=== PATIENT | female | born 1955 | race Caucasian/White ===

== ENCOUNTER 2018-04-12 15:44 | Inpatient (IN) ==
[2018-04-12] MEDS ORDERED: D5% in Water 1,000 ML IVC PRN (19:04)
[2018-04-12] MEDS ORDERED: Dextrose Gel 15 GM/37.5 ML TUBE PO PRN ×2 (19:04)
[2018-04-12] MEDS ORDERED: *HR* Dextrose 50 % in Water (Syg) 50 ML SYRINGE IVP PRN (19:04)
[2018-04-12] MEDS ORDERED: Nitroglycerin 0.4 MG TAB.SUBL SL PRN (21:49)
[2018-04-12] MEDS: Insulin LISPRO 300 UNITS/3 ML VIAL SQ SCH (22:53)
[2018-04-13] MEDS: *HR* Heparin 5,000 UNIT/ML VIAL SQ SCH ×2 (05:02→17:22)
[2018-04-13 05:33] LABS: Basophils # 0.1 K/mcL (0.0-0.2); Basophils % 1.3 %; Eosinophils # 0.4 K/mcL (0.0-0.6); Eosinophils % 4.5 %; Hematocrit 40.4 % (35.3-44.9); Hemoglobin 13.8 g/dL (11.5-15.4); Immature Granulocytes % 0.3 % (0-4); Lymphocytes # 3.1 K/mcL (0.6-4.6); Lymphocytes % 39.8 %; Mean Corpuscular HGB Conc 34.2 g/dL (31.6-35.5); Mean Corpuscular Hemoglobin 29.6 pg (28.0-33.3); Mean Corpuscular Volume 86.7 fL (83.0-100.0); Mean Platelet Volume 9.9 fL (9.4-12.4); Monocytes # 0.7 K/mcL (0.0-1.3); Monocytes % 9.1 %; Neutrophils # 3.5 K/mcL (1.6-8.9); Platelet Count 314 K/mcL (140-400); Red Blood Count 4.66 M/mcL (3.82-4.97); Red Cell Distribution Width 11.9 % (11.5-14.5)
[2018-04-13 05:50] LABS: Alanine Aminotransferase 14 Units/L (7-52); Albumin 4.3 g/dL (3.5-5.7); Albumin/Globulin Ratio 1.9 (1.1-2.2); Alkaline Phosphatase 53 Units/L (34-104); Aspartate Amino Transferase 13 Units/L (13-39); BUN/Creatinine Ratio 19 (6-26); Bilirubin,Total 0.5 mg/dL (0.3-1.0); Blood Urea Nitrogen 16 mg/dL (8-23); Calcium 9.5 mg/dL (8.6-10.3); Carbon Dioxide 28 mEq/L (23-29); Chloride 106 mEq/L (98-107); Globulin 2.3 g/dL (2.4-3.5); Glucose 137 mg/dL (70-105); Magnesium 1.8 mg/dL (1.6-2.6); Osmolality,Calculated 297 (280-300); Potassium 3.9 mEq/L (3.5-5.1); Sodium 142 mEq/L (136-145); Total Protein 6.6 g/dL (6.4-8.9); eGFR For Non-African Americans > 60 (> 60)
[2018-04-13] MEDS: Insulin LISPRO 300 UNITS/3 ML VIAL SQ SCH ×4 (07:58→20:58)
[2018-04-13] MEDS: Cholecalciferol (D-3) 1,000 UNIT TABLET PO SCH (08:19)
[2018-04-13] MEDS: Aspirin Enteric Coated 81 MG Tablet PO SCH (08:20)
[2018-04-13] MEDS: METFORMIN PO SCH ×2 (08:20→20:58)
[2018-04-13] MEDS: [UNRECOGNIZED DRUG - OTHER] PO SCH ×2 (08:20→20:58)
[2018-04-13] MEDS: Gabapentin 100 MG CAPSULE PO SCH ×2 (08:20→20:58)
[2018-04-13] MEDS: Metoprolol XL (24 HR) Succ 25 MG TAB.ER.24H PO SCH (08:20)
[2018-04-13] MEDS: traMADol 50 MG TABLET PO PRN ×2 (09:10→20:58)
--- NOTE | 2018-04-13 11:59 | Internal Med History&Physical ---
Date of Encounter: 04/13/18 Time of Encounter: 11:55 Assessment and Plan (1) CVA (cerebral vascular accident) Current visit: Yes Status: Acute Patient lives this facility for rehabilitation due to deconditioning, secondary to a possible CVA. Patient was evaluated for right hemiparesis at [facility] by neurology. After serial imaging , no definite diagnosis of CVA was obtained. Patient continues with right hemiparesis with muscle strength focal deficits noted on exam. 06/30. Patient with complaints of decreased sensation to her right leg, but otherwise no other focal neurological deficits noted on exam. He is to continue follow-up with neurology in 3-4 weeks per discharge orders. Physical therapy evaluation pending. We will continue with current plan of care. Qualifiers: CVA mechanism: unspecified Qualified Code(s): I63.9 - Cerebral infarction, unspecified (2) Diabetes Current visit: Yes Status: Chronic No acute issues at this time. Patient's glucose has been fairly well-controlled with most fingerstick readings between 150 and 170. We will continue with current sliding scale coverage and patient's current medication regimen. Qualifiers: Diabetes mellitus type: type 2 Diabetes mellitus terminal superintendent insulin use: without terminal superintendent use Diabetes mellitus complication status: without complication Qualified Code(s): E11.9 - Type 2 diabetes mellitus without complications (3) CAD (coronary artery disease) Current visit: Yes Status: Chronic Patient presented to emergency department with complaints of chest pain, but was evaluated by cardiology and found to have negative enzymes. Patient did have a stress test which showed possible ischemia. Patient was to be treated medically and is to continue follow-up with cardiology. Patient does have a history of coronary artery disease. States no further chest discomforts since her initial admission. Denies any palpitations. We will continue with current home medications Qualifiers: Coronary Disease-Associated Artery/Lesion type: [place] artery [place] vs. transplanted heart: [place] heart Associated angina: without angina Qualified Code(s): I25.10 - Atherosclerotic heart disease of [place] coronary artery without angina pectoris Internal Medicine - H&P: HPI Chief complaint: CVA Admitted From: Hospital to Hospital Transfer Plans for Post Hospital Care: Home History of present illness: Ms. Fenton is a 62 year old female , who was admitted to this facility as a transfer from [facility]. Patient presented to [facility] with complaints of chest pain and right hemiparesis. Patient's chest pain had soon resolved after presentation to the emergency department and cardiology evaluation showed no HI per enzymes. Patient did have a stress test performed which did show slight ischemia. Per medical records treatment plan decision was for medical manag ement. Patient was evaluated by neurology and had serial emergency which did not show any acute infarction. Patient continues with right hemiparesis and is to follow-up with neurology in 3-4 weeks for further evaluation. Patient does have a history of previous CVA, but states that she has no residual from that event. Patient does state that she feels her strength in her right hand has improved slightly since her transfer. Patient states that she has a decreased sensation that she has noticed to the entire right leg, with lateral greater than medial in loss of sensation. Patient denies paresthesias symptoms. Patient currently denies any acute neurological changes since her discharge from hospital. Patient denies any further chest discomforts or palpitations. Patient denies any dyspnea or productive cough. Afebrile. Past Med Surg Social Fam HX - Past Medical History Medical history: coronary artery disease, CVA, DVT, diabetes, fibromyalgia, hyperlipidemia, hypertension, seizures Additional medical history: thyroid cancer-2013 Psychiatric history: no psych history - Past Surgical History Surgical History: cholecystectomy, LAYLA/BSO, thyroidectomy Additional surgical history: cath heart, - Social History Smoking Status: Never smoker Smokeless Tobacco Status: No Alcohol use: none Drug use: none - Family History Mother Living Status: Hx Family Cardiac Disorders: Yes (valve replacement) Hx Family Endocrine Disorder: Yes (CKD) Hx Family Neurologic Disorders: Yes (CVA) Brother Living Status: Still Living Hx Family Cardiac Disorders: Yes (open heart x2) Father Living Status: Hx Family Respiratory Disorders: Yes (emphysema) Internal Medicine - H&P: Meds Aspirin [Lo-Dose Aspirin EC] 81 mg PO DAILY 04/25/16 [History] Atorvastatin Calcium 10 mg PO DAILY 04/25/16 [History] Clopidogrel [Plavix] 75 mg PO DAILY 04/25/16 [History] Duloxetine HCl [Cymbalta] 60 mg PO DAILY 10/06/16 [History] Ergocalciferol (VITAMIN D2) [Vitamin D2] 2,000 unit PO DAILY 10/06/16 [History] Gabapentin [Neurontin] 200 mg PO HS 10/06/16 [History] Metformin HCl [Metformin ER Gastric] 1,000 mg PO BID 10/06/16 [History] Oxybutynin [Ditropan] 5 mg PO BID 10/06/16 [History] Latanoprost [Xalatan] 1 drop BOTH EYES QPM 04/10/18 [History] Levothyroxine Sodium 112 mcg PO DAILY 04/10/18 [History] Gabapentin [Neurontin] 200 mg PO QAM #0 04/12/18 [Rx] Metoprolol XL (24 HR) Succ [Toprol Xl] 25 mg PO DAILY #30 tab.er.24h 04/12/18 [Rx] Nitroglycerin 0.4 mg SL Q5MIN PRN #30 tab.subl 04/12/18 [Rx] Tramadol HCl [Ultram] 50 mg PO QID PRN 3 Days #12 tab 04/12/18 [Rx] Allergy/AdvReac Type Severity Reaction Status Date / Time oxycodone [From Percocet] AdvReac Rash Verified 10/06/16 09:43 All Systems PM: A 10-system review of systems was performed and is negative for pertinent findings except as documented above in the HPI. - Constitutional Constitutional: as per HPI, no chills, no fever(s), no night sweats - EENT Eyes: as per HPI, no change in vision, no discharge, no pain, no photophobia Ears: no ear discharge, no ear pain, no tinnitus Nose, mouth and throat: no dysphagia, no nasal discharge, no neck pain, no sore throat - Cardiovascular Cardiovascular ROS IM: as per HPI, no chest pain, no diaphoresis, no dyspnea, no lightheadedness, no palpitations, no syncope - Respiratory Respiratory: as per HPI, no cough, no dyspnea, no wheezing, no excessive phlegm production - Gastrointestinal Gastrointestinal: as per HPI, no abdominal pain, no diarrhea, no hematemesis, no hematochezia, no melena, no nausea, no vomiting - Genitourinary Genitourinary: as per HPI, no change in urinary stream, no dysuria, no flank pain, no hematuria - Musculoskeletal Musculoskeletal ROS IM: as per HPI, no numbness, no tingling - Integumentary Integumentary IM: as per HPI, no rash, no unusual bruising - Neurological Neurological ROS: as per HPI, no confusion, no convulsions, no focal weakness, no numbness, no tingling, no tremor(s) - Hematologic/Lymphatic Hematologic/Lymphatic: no easy bruising - Constitutional Vitals: Temp Pulse Resp BP Pulse Ox 97.9 F 62 18 136/68 94 04/13/18 11:45 04/13/18 11:45 04/13/18 11:45 04/13/18 11:45 04/13/18 11:45 General appearance: Present: A&O X 3, pleasant - Head Head exam: Present: atraumatic, normocephalic - Eye Eye exam: Present: PERRL, conjuntiva pink, sclera anicteric Pupils: Present: PERRL - Neck Neck exam general surgery: Present: supple, trachea midline. Absent: lymphadenopathy - Respiratory Respiratory exam: Present: CTAB, rales. Absent: accessory muscle use, rhonchi, wheezes Additional comments: Respiratory effort appears relaxed. Lungs are clear throughout [place] with fine posterior bibasilar rales heard. No productive cough. - Cardiovascular Cardiovascular exam: Present: RRR, +S1, +S2. Absent: diastolic murmur, gallop, rubs, systolic murmur - GI/Abdominal GI/Abdominal exam: Present: normal bowel sounds, soft, no peritoneal signs. Absent: distended, tenderness - Extremities Exam Extremities exam: Present: warm, radial pulses palpable and symmetrical. Absent: calf tenderness, cyanotic, pedal edema - Neurological Exam Neurological exam: Present: CN II-XII intact, oriented X3. Absent: pronater drift, facial droop, speech deficit Additional comments: Continued right hemiparesis with right upper extremity at 4/5 muscle strength and right lower extremity at 4/5 muscle strength. Left extremities show 5/5 muscle strength. No hyperreflexia noted. No clonus. Patient does complain of slight decreased in sensation to entire right leg, with increased numbness noted to lateral side of right leg - Skin Skin exam: Present: dry, intact Internal Med - H&P Results - Labs CBC & Chem 7: 04/13/18 04:45 04/13/18 04:45 Labs: Short CBC 04/13/18 Range/Units 04:45 WBC 7.8 (4.3-11.1) K/mcL Hgb 13.8 D (11.5-15.4) g/dL Hct 40.4 (35.3-44.9) % Plt Count 314 (140-400) K/mcL Neutrophils # 3.5 (1.6-8.9) K/mcL BMP 04/13/18 04:45 Sodium 142 Potassium 3.9 Chloride 106 Carbon Dioxide 28 BUN 16 Creatinine 0.83 Glucose 137 H Calcium 9.5 Liver Function 04/13/18 Range/Units 04:45 Total Bilirubin 0.5 (0.3-1.0) mg/dL AST 13 (13-39) Units/L ALT 14 (7-52) Units/L Alkaline Phosphatase 53 (34-104) Units/L Albumin 4.3 (3.5-5.7) g/dL
[2018-04-13] MEDS: Latanoprost 2.5 ML BOTTLE BOTH EYES SCH (17:23)
[2018-04-14] MEDS: *HR* Heparin 5,000 UNIT/ML VIAL SQ SCH ×2 (04:42→17:22)
[2018-04-14 06:04] LABS: Hematocrit 39.6 % (35.3-44.9); Hemoglobin 13.3 g/dL (11.5-15.4); Mean Corpuscular HGB Conc 33.6 g/dL (31.6-35.5); Mean Corpuscular Hemoglobin 29.3 pg (28.0-33.3); Mean Corpuscular Volume 87.2 fL (83.0-100.0); Mean Platelet Volume 9.9 fL (9.4-12.4); Platelet Count 292 K/mcL (140-400); Red Blood Count 4.54 M/mcL (3.82-4.97)
[2018-04-14 06:19] LABS: Alanine Aminotransferase 23 Units/L (7-52); Albumin 4.3 g/dL (3.5-5.7); Albumin/Globulin Ratio 1.9 (1.1-2.2); Alkaline Phosphatase 52 Units/L (34-104); Aspartate Amino Transferase 21 Units/L (13-39); BUN/Creatinine Ratio 17 (6-26); Bilirubin,Total 0.5 mg/dL (0.3-1.0); Blood Urea Nitrogen 14 mg/dL (8-23); Calcium 9.4 mg/dL (8.6-10.3); Carbon Dioxide 29 mEq/L (23-29); Chloride 105 mEq/L (98-107); Globulin 2.3 g/dL (2.4-3.5); Glucose 153 mg/dL (70-105); Magnesium 1.9 mg/dL (1.6-2.6); Osmolality,Calculated 296 (280-300); Sodium 141 mEq/L (136-145); Total Protein 6.6 g/dL (6.4-8.9); eGFR For Non-African Americans > 60 (> 60)
[2018-04-14] MEDS: Insulin LISPRO 300 UNITS/3 ML VIAL SQ SCH ×4 (07:51→21:42)
[2018-04-14] MEDS: Cholecalciferol (D-3) 1,000 UNIT TABLET PO SCH (08:17)
[2018-04-14] MEDS: Gabapentin 100 MG CAPSULE PO SCH ×2 (08:17→21:43)
[2018-04-14] MEDS: traMADol 50 MG TABLET PO PRN ×2 (08:18→21:43)
[2018-04-14] MEDS: Aspirin Enteric Coated 81 MG Tablet PO SCH (08:18)
[2018-04-14] MEDS: Metoprolol XL (24 HR) Succ 25 MG TAB.ER.24H PO SCH (08:18)
[2018-04-14] MEDS: METFORMIN PO SCH (08:19)
[2018-04-14] MEDS: [UNRECOGNIZED DRUG - OTHER] PO SCH (08:19)
--- NOTE | 2018-04-14 14:26 | Internal Med Progress Note ---
Addendum entered and electronically signed by Ofelia Lyn 04/16/18 18:32: I have personally performed a face to face evaluation on this patient. I have reviewed and agree with the care plan. Original Note: Date of Encounter: 04/14/18 Time of Encounter: 14:24 - Assessment and plan (1) CVA (cerebral vascular accident) Current Visit: Yes Status: Acute Assessment and plan: No acute issues. Patient shows no neurological changes this last exam. Patient continues with right hemiparesis. Dissipated and physical therapy and progressing well. We will continue with current plan of care Qualifiers: CVA mechanism: unspecified Qualified Code(s): I63.9 - Cerebral infarction, unspecified (2) Diabetes Current Visit: Yes Status: Chronic Assessment and plan: Patient's diabetes is been fairly well controlled. We will continue with fingersticks and sliding scale coverage. We will review patient's medication regimen. Qualifiers: Diabetes mellitus type: type 2 Diabetes mellitus alf insulin use: without alf use Diabetes mellitus complication status: without complication Qualified Code(s): E11.9 - Type 2 diabetes mellitus without complications (3) CAD (coronary artery disease) Current Visit: Yes Status: Chronic Assessment and plan: No acute issues. Patient denies any chest discomforts or palpitations. Vital signs stable. We will continue with current medications and plan a care. Qualifiers: Coronary Disease-Associated Artery/Lesion type: [place] artery [place] vs. transplanted heart: [place] heart Associated angina: without angina Qualified Code(s): I25.10 - Atherosclerotic heart disease of [place] coronary artery without angina pectoris - Time Spent With Patient less than 15 minutes - Subjective Interval history: Patient appears relaxed currently denies any discomforts or shortness of breath. Patient denies any acute neurological changes. States that she has been participating in physical therapy and progressing well. - Constitutional Vitals: Temp Pulse Resp BP Pulse Ox 98.2 F 57 16 127/62 96 04/14/18 09:00 04/14/18 09:00 04/14/18 09:00 04/14/18 09:00 04/14/18 09:00 General appearance: Present: A&O X 3, pleasant - Head Head exam: Present: atraumatic, normocephalic - Eye Eye exam: Present: PERRL, conjuntiva pink, sclera anicteric Pupils: Present: PERRL - Neck Neck exam general surgery: Present: supple, trachea midline. Absent: lymphadenopathy - Respiratory Respiratory exam: Present: CTAB. Absent: accessory muscle use, rales, rhonchi, wheezes - Cardiovascular Cardiovascular exam: Present: RRR, +S1, +S2. Absent: diastolic murmur, gallop, rubs, systolic murmur - GI/Abdominal GI/Abdominal exam: Present: normal bowel sounds, soft, no peritoneal signs. Absent: distended, tenderness - Extremities Exam Extremities exam: Present: warm, radial pulses palpable and symmetrical. Absent: calf tenderness, cyanotic, pedal edema - Neurological Exam Neurological exam: Present: CN II-XII intact, oriented X3. Absent: pronater drift, facial droop, speech deficit Additional comments: Patient continues to have right hemiparesis with muscle strength on right extremities at 3/5. Muscle strength unless there is extremities at 5/5. No facial droop, tongue is midline. Speech is clear and appropriate. - Skin Skin exam: Present: dry, intact Internal Medicine: Result - Labs CBC & Chem 7: 04/14/18 04:30 04/14/18 04:30 Labs: Short CBC 04/14/18 Range/Units 04:30 WBC 6.4 (4.3-11.1) K/mcL Hgb 13.3 (11.5-15.4) g/dL Hct 39.6 (35.3-44.9) % Plt Count 292 (140-400) K/mcL BMP 04/14/18 04:30 Sodium 141 Potassium 4.0 Chloride 105 Carbon Dioxide 29 BUN 14 Creatinine 0.82 Glucose 153 H Calcium 9.4 Liver Function 04/14/18 Range/Units 04:30 Total Bilirubin 0.5 (0.3-1.0) mg/dL AST 21 (13-39) Units/L ALT 23 (7-52) Units/L Alkaline Phosphatase 52 (34-104) Units/L Albumin 4.3 (3.5-5.7) g/dL Consult Discharge Plan - Plan Referrals: Teresa Marie CNP [Primary Care Provider] -
[2018-04-14] MEDS ORDERED: *HR* Metformin 500 MG TABLET PO SCH (17:00)
[2018-04-14] MEDS: Latanoprost 2.5 ML BOTTLE BOTH EYES SCH (17:23)
[2018-04-14] MEDS ORDERED: [UNRECOGNIZED DRUG - OTHER] PO SCH (21:00)
[2018-04-14] MEDS ORDERED: METFORMIN PO SCH (21:00)
[2018-04-15] MEDS: *HR* Heparin 5,000 UNIT/ML VIAL SQ SCH ×2 (06:06→17:03)
[2018-04-15] MEDS: Metoprolol XL (24 HR) Succ 25 MG TAB.ER.24H PO SCH (08:08)
[2018-04-15] MEDS: Cholecalciferol (D-3) 1,000 UNIT TABLET PO SCH (08:08)
[2018-04-15] MEDS: Gabapentin 100 MG CAPSULE PO SCH ×2 (08:08→21:07)
[2018-04-15] MEDS: Aspirin Enteric Coated 81 MG Tablet PO SCH (08:08)
[2018-04-15] MEDS: Insulin LISPRO 300 UNITS/3 ML VIAL SQ SCH ×4 (08:09→21:06)
[2018-04-15] MEDS: traMADol 50 MG TABLET PO PRN ×2 (08:19→21:07)
[2018-04-15] MEDS: Latanoprost 2.5 ML BOTTLE BOTH EYES SCH (17:04)
[2018-04-16] MEDS: *HR* Heparin 5,000 UNIT/ML VIAL SQ SCH ×2 (04:49→17:02)
[2018-04-16] MEDS: Insulin LISPRO 300 UNITS/3 ML VIAL SQ SCH ×4 (07:45→20:41)
[2018-04-16] MEDS: Metoprolol XL (24 HR) Succ 25 MG TAB.ER.24H PO SCH (08:47)
[2018-04-16] MEDS: Aspirin Enteric Coated 81 MG Tablet PO SCH (08:47)
[2018-04-16] MEDS: Gabapentin 100 MG CAPSULE PO SCH ×2 (08:47→20:41)
[2018-04-16] MEDS: Cholecalciferol (D-3) 1,000 UNIT TABLET PO SCH (08:48)
[2018-04-16] MEDS: traMADol 50 MG TABLET PO PRN (08:49)
[2018-04-16] MEDS: Latanoprost 2.5 ML BOTTLE BOTH EYES SCH (17:02)
--- NOTE | 2018-04-16 18:36 | Internal Med Progress Note ---
Date of Encounter: 04/16/18 Time of Encounter: 15:40 - Subjective Interval history: - Assessment and plan (1) CVA (cerebral vascular accident) deconditioning Current Visit: Yes Status: Acute Assessment and plan: No acute issues. Patient shows no neurological changes this last exam. Patient continues with right hemiparesis. Dissipated and physical therapy and progressing well. We will continue with current plan of care Qualifiers: CVA mechanism: unspecified Qualified Code(s): I63.9 - Cerebral infarction, unspecified (2) Diabetes Current Visit: Yes Status: Chronic Assessment and plan: Patient's diabetes is been fairly well controlled. We will continue with fingersticks and sliding scale coverage. We will review patient's medication regimen. Qualifiers: Diabetes mellitus type: type 2 Diabetes mellitus photogrammetric technician insulin use: without photogrammetric technician use Diabetes mellitus complication status: without complication Qualified Code(s): E11.9 - Type 2 diabetes mellitus without complications (3) CAD (coronary artery disease) Current Visit: Yes Status: Chronic Assessment and plan: No acute issues. Patient denies any chest discomforts or palpitations. Vital signs stable. We will continue with current medications and plan a care. Qualifiers: Coronary Disease-Associated Artery/Lesion type: [place] artery [place] vs. transplanted heart: [place] heart Associated angina: without angina Qualified Code(s): I25.10 - Atherosclerotic heart disease of [place] coronary artery without angina pectoris - Time Spent With Patient less than 15 minutes - Subjective Interval history: Patient appears relaxed currently denies any discomforts or shortness of breath. Patient denies any acute neurological changes. States that she has been participating in physical therapy and progressing well. No CP no sob -Exam General appearance: Present: A&O X 3, pleasant - Head Head exam: Present: atraumatic, normocephalic - Eye Eye exam: Present: PERRL, conjuntiva pink, sclera anicteric Pupils: Present: PERRL - Neck Neck exam general surgery: Present: supple, trachea midline. Absent: lymphadenopathy - Respiratory Respiratory exam: Present: CTAB. Absent: accessory muscle use, rales, rhonchi, wheezes - Cardiovascular Cardiovascular exam: Present: RRR, +S1, +S2. Absent: diastolic murmur, gallop, rubs, systolic murmur - GI/Abdominal GI/Abdominal exam: Present: normal bowel sounds, soft, no peritoneal signs. Absent: distended, tenderness - Extremities Exam Extremities exam: Present: warm, radial pulses palpable and symmetrical. Absent: calf tenderness, cyanotic, pedal edema - Neurological Exam Neurological exam: Present: CN II-XII intact, oriented X3. Absent: pronater drift, facial droop, speech deficit Additional comments: Patient continues to have right hemiparesis with muscle strength on right extremities at 3/5. Muscle strength unless there is extremities at 5/5. No facial droop, tongue is midline. Speech is clear and appropriate. - Skin Skin exam: Present: dry, intact - Constitutional Vitals: Temp Pulse Resp BP Pulse Ox 97.6 F 69 18 127/73 96 04/16/18 07:00 04/16/18 07:00 04/16/18 07:00 04/16/18 07:00 04/16/18 07:00 General appearance: Present: A&O X 3, pleasant Internal Medicine: Result - Labs CBC & Chem 7: 04/14/18 04:30 04/14/18 04:30 Consult Discharge Plan - Plan Referrals: Teresa Marie WIRELESS FIELD TECHNICIAN [Primary Care Provider] -
--- NOTE | 2018-04-16 18:36 | Internal Med Progress Note ---
Date of Encounter: 04/15/18 Time of Encounter: 16:30 - Subjective Interval history: - Assessment and plan (1) CVA (cerebral vascular accident) deconditioning Current Visit: Yes Status: Acute Assessment and plan: No acute issues. Patient shows no neurological changes this last exam. Patient continues with right hemiparesis. Dissipated and physical therapy and progressing well. We will continue with current plan of care Qualifiers: CVA mechanism: unspecified Qualified Code(s): I63.9 - Cerebral infarction, unspecified (2) Diabetes Current Visit: Yes Status: Chronic Assessment and plan: Patient's diabetes is been fairly well controlled. We will continue with fingersticks and sliding scale coverage. We will review patient's medication regimen. Qualifiers: Diabetes mellitus type: type 2 Diabetes mellitus oysterman insulin use: without oysterman use Diabetes mellitus complication status: without complication Qualified Code(s): E11.9 - Type 2 diabetes mellitus without complications (3) CAD (coronary artery disease) Current Visit: Yes Status: Chronic Assessment and plan: No acute issues. Patient denies any chest discomforts or palpitations. Vital signs stable. We will continue with current medications and plan a care. Qualifiers: Coronary Disease-Associated Artery/Lesion type: [place] artery [place] vs. transplanted heart: [place] heart Associated angina: without angina Qualified Code(s): I25.10 - Atherosclerotic heart disease of [place] coronary artery without angina pectoris - Time Spent With Patient less than 15 minutes - Subjective Interval history: Patient appears relaxed currently denies any discomforts or shortness of breath. Patient denies any acute neurological changes. States that she has been participating in physical therapy and progressing well. No CP no sob -Exam General appearance: Present: A&O X 3, pleasant - Head Head exam: Present: atraumatic, normocephalic - Eye Eye exam: Present: PERRL, conjuntiva pink, sclera anicteric Pupils: Present: PERRL - Neck Neck exam general surgery: Present: supple, trachea midline. Absent: lymphadenopathy - Respiratory Respiratory exam: Present: CTAB. Absent: accessory muscle use, rales, rhonchi, wheezes - Cardiovascular Cardiovascular exam: Present: RRR, +S1, +S2. Absent: diastolic murmur, gallop, rubs, systolic murmur - GI/Abdominal GI/Abdominal exam: Present: normal bowel sounds, soft, no peritoneal signs. Absent: distended, tenderness - Extremities Exam Extremities exam: Present: warm, radial pulses palpable and symmetrical. Absent: calf tenderness, cyanotic, pedal edema - Neurological Exam Neurological exam: Present: CN II-XII intact, oriented X3. Absent: pronater drift, facial droop, speech deficit Additional comments: Patient continues to have right hemiparesis with muscle strength on right extremities at 3/5. Muscle strength unless there is extremities at 5/5. No facial droop, tongue is midline. Speech is clear and appropriate. - Skin Skin exam: Present: dry, intact - Constitutional Vitals: Temp Pulse Resp BP Pulse Ox 97.6 F 69 18 127/73 96 04/16/18 07:00 04/16/18 07:00 04/16/18 07:00 04/16/18 07:00 04/16/18 07:00 General appearance: Present: A&O X 3, pleasant Internal Medicine: Result - Labs CBC & Chem 7: 04/14/18 04:30 04/14/18 04:30 Consult Discharge Plan - Plan Referrals: Teresa Marie PUBLIC HOUSING MANAGER [Primary Care Provider] -
[2018-04-17] MEDS: *HR* Heparin 5,000 UNIT/ML VIAL SQ SCH ×2 (05:53→18:21)
[2018-04-17 06:19] LABS: Basophils # 0.1 K/mcL (0.0-0.2); Basophils % 0.9 %; Eosinophils # 0.4 K/mcL (0.0-0.6); Eosinophils % 4.4 %; Hematocrit 38.6 % (35.3-44.9); Hemoglobin 13.3 g/dL (11.5-15.4); Immature Granulocytes % 0.4 % (0-4); Lymphocytes # 2.8 K/mcL (0.6-4.6); Lymphocytes % 34.3 %; Mean Corpuscular HGB Conc 34.5 g/dL (31.6-35.5); Mean Corpuscular Volume 86.9 fL (83.0-100.0); Mean Platelet Volume 10.2 fL (9.4-12.4); Monocytes # 0.7 K/mcL (0.0-1.3); Monocytes % 8.2 %; Neutrophils # 4.2 K/mcL (1.6-8.9); Platelet Count 280 K/mcL (140-400); Red Blood Count 4.44 M/mcL (3.82-4.97); Red Cell Distribution Width 12.1 % (11.5-14.5); Segmented Neutrophils % 51.8 %
[2018-04-17 06:33] LABS: BUN/Creatinine Ratio 20 (6-26); Blood Urea Nitrogen 16 mg/dL (8-23); Calcium 9.4 mg/dL (8.6-10.3); Carbon Dioxide 30 mEq/L (23-29); Chloride 106 mEq/L (98-107); Glucose 117 mg/dL (70-105); Osmolality,Calculated 294 (280-300); Potassium 4.3 mEq/L (3.5-5.1); Sodium 141 mEq/L (136-145); eGFR For Non-African Americans > 60 (> 60)
[2018-04-17] MEDS: Insulin LISPRO 300 UNITS/3 ML VIAL SQ SCH ×4 (07:56→20:41)
[2018-04-17] MEDS: Acetaminophen 325 MG TABLET PO PRN (08:19)
[2018-04-17] MEDS: Aspirin Enteric Coated 81 MG Tablet PO SCH (08:20)
[2018-04-17] MEDS: Metoprolol XL (24 HR) Succ 25 MG TAB.ER.24H PO SCH (08:20)
[2018-04-17] MEDS: Gabapentin 100 MG CAPSULE PO SCH ×2 (08:20→20:41)
[2018-04-17] MEDS: Cholecalciferol (D-3) 1,000 UNIT TABLET PO SCH (08:20)
--- NOTE | 2018-04-17 14:54 | Internal Med Progress Note ---
Addendum entered and electronically signed by Reilly Booker MD 04/20/18 12:57: I have personally performed a face to face evaluation on this patient. I have r eviewed and agree with the care plan. History and Exam by me shows: For schedule and/or computer reasons, this note is a late entry. Patient was seen on the date of the initial note. Patient is feeling well and feels like she is progressing, nicely. She wonders about when she go home. Discussed care with other providers and/or nursing. Patient has no complaint of chest discomfort, dyspnea, orthopnea, palpitations, nausea or vomiting, constipation or diarrhea, other changes in bowel habits, difficulty with urination, rash or itching, or other new complaints, except as mentioned above. Review of systems is otherwise negative. Examination: (Except as mentioned above): General: In no apparent distress. Alert and oriented 3. Nondiaphoretic. Head: Atraumatic and normocephalic. Respiratory: No use of accessory muscles. Lungs are clear throughout. Normal airflow. Cardiovascular: Regular rate and rhythm without murmur appreciated. Abdomen: Bowel sounds are normal. No hepatosplenomegaly mass or tenderness appreciated. Obese and therefore difficult to palpate deeply. Extremities: No cyanosis clubbing or edema. Skin: Warm and non-diaphoretic with no new lesions noted. Addendum entered and electronically signed by Reilly Booker MD 04/17/18 16:10: I have personally performed a face to face evaluation on this patient. I have reviewed and agree with the care plan. History and Exam by me shows: The patient's clinical situation is again confusing. She has persistent right lower extremity and upper extremity weakness which is mild and yet she has no speech changes, etc. They told her she had a TIA but this is certainly persistent. They told her (at the other hospital) and might be spinal stenosis but this does not appear that bad at the report of her cervical MRI. I wonder if she actually had a stroke but why this did not appear on MRI of the brain. She apparently has a neurology follow-up and encouraged her to ask these questions: She had a stroke in his soda she need any medication to prevent further stroke. Does she have spinal stenosis and need further evaluation of same. I would consider EMG, nerve conduction velocities, etc. Discussed care with other providers and/or nursing. Patient has no complaint of chest discomfort, dyspnea, orthopnea, palpitations, nausea or vomiting, constipation or diarrhea, other changes in bowel habits, difficulty with urination, rash or itching, or other new complaints, except as mentioned above. Review of systems is otherwise negative. Examination: (Except as mentioned above): General: In no apparent distress. Alert and oriented 3. Nondiaphoretic. Head: Atraumatic and normocephalic. Respiratory: No use of accessory muscles. Lungs are clear throughout. Normal airflow. Cardiovascular: Regular rate and rhythm without murmur appreciated. Abdomen: Bowel sounds are normal. No hepatosplenomegaly mass or tenderness appreciated. Obese and therefore difficult to palpate deeply. Extremities: No cyanosis clubbing or edema. Skin: Warm and non-diaphoretic with no new lesions noted. Neurologic: 4 minus/5 weakness of right upper and lower extremity. There is no speech deficit or facial weakness noted. Original Note: Date of Encounter: 04/17/18 Time of Encounter: 14:53 - Assessment and plan (1) CVA (cerebral vascular accident) Current Visit: Yes Status: Acute Assessment and plan: No acute issues. Patient shows no neurological changes this last exam. Patient continues with right hemiparesis with right extremity muscle strength 4/5. Participating in physical therapy and progressing well. We will continue with current plan of care. Patient is to continue with follow-up with neurology as ordered Qualifiers: CVA mechanism: unspecified Qualified Code(s): I63.9 - Cerebral infarction, unspecified (2) Diabetes Current Visit: Yes Status: Chronic Assessment and plan: Patient's diabetes is been fairly well controlled. We will continue with fingersticks and sliding scale coverage. We will review patient's medication regimen. Qualifiers: Diabetes mellitus type: type 2 Diabetes mellitus work station support specialist insulin use: without work station support specialist use Diabetes mellitus complication status: without complication Qualified Code(s): E11.9 - Type 2 diabetes mellitus without complications (3) CAD (coronary artery disease) Current Visit: Yes Status: Chronic Assessment and plan: No acute issues. Patient denies any chest discomforts or palpitations. Vital signs stable. We will continue with current medications and plan a care. Qualifiers: Coronary Disease-Associated Artery/Lesion type: [place] artery [place] vs. transplanted heart: [place] heart Associated angina: without angina Qualified Code(s): I25.10 - Atherosclerotic heart disease of [place] coronary artery without angina pectoris (4) Constipation Current Visit: Yes Status: Acute Assessment and plan: Patient was complaints is no BM for past 4-5 days. Patient states that she is usually quite regular at home. We will give a dose of mag citrate. We will review patient's scheduled laxatives. Qualifiers: Constipation type: unspecified constipation type Qualified Code(s): K59.00 - Constipation, unspecified - Time Spent With Patient less than 15 minutes - Subjective Interval history: Patient appears relaxed currently denies any discomforts or shortness of breath. Patient does have complaints of constipation stating that she has not had a bowel movement in several days. Patient denies any acute neurological changes. States that she has been participating in physical therapy and progressing well. - Constitutional Vitals: Temp Pulse Resp BP Pulse Ox 97.9 F 65 18 144/78 97 04/17/18 07:00 04/17/18 07:00 04/17/18 07:00 04/17/18 07:00 04/17/18 07:00 General appearance: Present: A&O X 3, pleasant - Head Head exam: Present: atraumatic, normocephalic - Eye Eye exam: Present: PERRL, conjuntiva pink, sclera anicteric Pupils: Present: PERRL - Neck Neck exam general surgery: Present: supple, trachea midline. Absent: lymphadenopathy - Respiratory Respiratory exam: Present: CTAB. Absent: accessory muscle use, rales, rhonchi, wheezes - Cardiovascular Cardiovascular exam: Present: RRR, +S1, +S2. Absent: diastolic murmur, gallop, rubs, systolic murmur - GI/Abdominal GI/Abdominal exam: Present: normal bowel sounds, soft, no peritoneal signs. Absent: distended, tenderness - Extremities Exam Extremities exam: Present: warm, radial pulses palpable and symmetrical. Absent: calf tenderness, cyanotic, pedal edema - Neurological Exam Neurological exam: Present: CN II-XII intact, oriented X3. Absent: pronater drift, facial droop, speech deficit Additional comments: Patient continues with right hemiparesis with right extremities showing 4/5 muscle strength for extension/flexion on proximal/distal. Left extremities show 5/5 muscle strength. No hyperreflexia. No De La Cruz's. No other focal neurological deficits noted on exam - Skin Skin exam: Present: dry, intact Internal Medicine: Result - Labs CBC & Chem 7: 04/17/18 05:55 04/17/18 05:55 Labs: Short CBC 04/17/18 Range/Units 05:55 WBC 8.2 (4.3-11.1) K/mcL Hgb 13.3 (11.5-15.4) g/dL Hct 38.6 (35.3-44.9) % Plt Count 280 (140-400) K/mcL Neutrophils # 4.2 (1.6-8.9) K/mcL BMP 04/17/18 05:55 Sodium 141 Potassium 4.3 Chloride 106 Carbon Dioxide 30 H BUN 16 Creatinine 0.80 Glucose 117 H Calcium 9.4 Consult Discharge Plan - Plan Referrals: Teresa Marie HAND DRAWER IN [Primary Care Provider] -
[2018-04-17] MEDS: Latanoprost 2.5 ML BOTTLE BOTH EYES SCH (18:22)
[2018-04-18] MEDS: *HR* Heparin 5,000 UNIT/ML VIAL SQ SCH ×2 (06:20→17:05)
[2018-04-18] MEDS: Insulin LISPRO 300 UNITS/3 ML VIAL SQ SCH ×4 (07:43→20:45)
[2018-04-18] MEDS: Acetaminophen 325 MG TABLET PO PRN (08:23)
[2018-04-18] MEDS: Aspirin Enteric Coated 81 MG Tablet PO SCH (08:24)
[2018-04-18] MEDS: Cholecalciferol (D-3) 1,000 UNIT TABLET PO SCH (08:24)
[2018-04-18] MEDS: Gabapentin 100 MG CAPSULE PO SCH ×2 (08:24→20:42)
[2018-04-18] MEDS: Metoprolol XL (24 HR) Succ 25 MG TAB.ER.24H PO SCH (08:24)
--- NOTE | 2018-04-18 13:33 | Internal Med Progress Note ---
Addendum entered and electronically signed by Reilly Booker MD 04/20/18 12:56: Patient not seen this day because she was busy with therapies and unavailable 1 I stopped by, multiple times. Addendum entered and electronically signed by Reilly Booker MD 04/18/18 14:51: I have personally performed a face to face evaluation on this patient. I have reviewed and agree with the care plan. History and Exam by me shows: Right lower extremity is not doing as well as right upper but both are improving. She is moving her bowels and bladder well. Discussed care with other providers and/or nursing. Patient has no complaint of chest discomfort, dyspnea, orthopnea, palpitations, nausea or vomiting, constipation or diarrhea, other changes in bowel habits, difficulty with urination, rash or itching, or other new complaints, except as mentioned above. Review of systems is otherwise negative. Examination: (Except as mentioned above): General: In no apparent distress. Alert and oriented 3. Nondiaphoretic. Head: Atraumatic and normocephalic. Respiratory: No use of accessory muscles. Lungs are clear throughout. Normal airflow. Cardiovascular: Regular rate and rhythm without murmur appreciated. Abdomen: Bowel sounds are normal. No hepatosplenomegaly mass or tenderness appreciated. Obese and therefore difficult to palpate deeply. Extremities: No cyanosis clubbing or edema. Skin: Warm and non-diaphoretic with no new lesions noted. Neurologic: She has 4 minus out of 5 strength in her right upper and lower e xtremities. Per therapy, she is progressing well and quickly. Original Note: Date of Encounter: 04/18/18 Time of Encounter: 13:31 - Assessment and plan (1) CVA (cerebral vascular accident) Current Visit: Yes Status: Acute Assessment and plan: Improving. Right upper extremity strength 5\5, right lower extremity strength 4\5. no new neurological deficits. Continue PT and OT. Will follow progress. Follow up with neurology as scheduled. Qualifiers: CVA mechanism: unspecified Qualified Code(s): I63.9 - Cerebral infarction, unspecified (2) CAD (coronary artery disease) Current Visit: Yes Status: Chronic Assessment and plan: Stable. Denies chest pain. Continue current medication. Qualifiers: Coronary Disease-Associated Artery/Lesion type: [place] artery [place] vs. transplanted heart: [place] heart Associated angina: without angina Qualified Code(s): I25.10 - Atherosclerotic heart disease of [place] coronary artery wit hout angina pectoris (3) Diabetes mellitus, type II Current Visit: Yes Status: Chronic Assessment and plan: Controlled with sliding scale insulin. Monitor fingerstick blood sugar. Will adjust medicines as necessary. Qualifiers: Diabetes mellitus long term care pharmacist insulin use: without half-way use Diabetes mellitus complication status: with other specified complication Qualified Code(s): E11.69 - Type 2 diabetes mellitus with other specified complication - Time Spent With Patient less than 15 minutes - Subjective Interval history: Participating well with therapy. Ambulating with Walker. States bowels moved last night after getting mag citrate. Feels like right upper extremity strength is almost normal. Continues to have slight weakness in right lower extremity. Denies any other further complaints at this time. - Constitutional Vitals: Temp Pulse Resp BP Pulse Ox 97.8 F 64 16 134/66 96 04/18/18 09:11 04/18/18 09:11 04/18/18 09:11 04/18/18 09:11 04/18/18 09:11 General appearance: Present: cooperative, A&O X 3, pleasant, no acute distress, obese, answers questions appropriately - Head Head exam: Present: atraumatic, normocephalic - Eye Eye exam: Present: PERRL, conjuntiva pink, sclera anicteric Pupils: Present: PERRL - Neck Neck exam general surgery: Present: supple, trachea midline. Absent: lymph adenopathy - Respiratory Respiratory exam: Present: CTAB. Absent: accessory muscle use, rales, rhonchi, wheezes - Cardiovascular Cardiovascular exam: Present: RRR, +S1, +S2. Absent: diastolic murmur, gallop, rubs, systolic murmur - GI/Abdominal GI/Abdominal exam: Present: normal bowel sounds, soft, no peritoneal signs. Absent: distended, tenderness - Extremities Exam Extremities exam: Present: warm, radial pulses palpable and symmetrical. Absent: calf tenderness, cyanotic, pedal edema Additional comments: Strength right upper extremity 5\5, strength right lower extremity 4\5 - Neurological Exam Neurological exam: Present: CN II-XII intact, oriented X3, no focal deficits. Absent: pronater drift, facial droop, speech deficit - Skin Skin exam: Present: dry, intact Internal Medicine: Result - Labs CBC & Chem 7: 04/17/18 05:55 04/17/18 05:55 Consult Discharge Plan - Plan Referrals: Teresa Marie CNP [Primary Care Provider] -
[2018-04-18] MEDS: Latanoprost 2.5 ML BOTTLE BOTH EYES SCH (17:05)
[2018-04-18] MEDS: traMADol 50 MG TABLET PO PRN (20:43)
[2018-04-19] MEDS: traMADol 50 MG TABLET PO PRN (06:29)
[2018-04-19] MEDS: *HR* Heparin 5,000 UNIT/ML VIAL SQ SCH ×2 (06:29→17:26)
[2018-04-19] MEDS: Cholecalciferol (D-3) 1,000 UNIT TABLET PO SCH (07:57)
[2018-04-19] MEDS: Gabapentin 100 MG CAPSULE PO SCH ×2 (07:57→20:00)
[2018-04-19] MEDS: Metoprolol XL (24 HR) Succ 25 MG TAB.ER.24H PO SCH (07:57)
[2018-04-19] MEDS: Insulin LISPRO 300 UNITS/3 ML VIAL SQ SCH ×4 (07:57→20:00)
[2018-04-19] MEDS: Aspirin Enteric Coated 81 MG Tablet PO SCH (07:57)
--- NOTE | 2018-04-19 14:32 | Internal Med Progress Note ---
Addendum entered and electronically signed by Reilly Booker MD 04/20/18 12:34: I have personally performed a face to face evaluation on this patient. I have r eviewed and agree with the care plan. History and Exam by me shows: The patient was evaluated by me yesterday but the note was not complete. This documentation is being completed today for that reason. Patient is feeling like she is improving once go home. I told her that multidisciplinary team meeting would be later today and will have a report from them with discharge plans based upon that. Discussed care with other providers and/or nursing. Patient has no complaint of chest discomfort, dyspnea, orthopnea, palpitations, nausea or vomiting, constipation or diarrhea, other changes in bowel habits, difficulty with urination, rash or itching, or other new complaints, except as mentioned above. Review of systems is otherwise negative. Examination: (Except as mentioned above): General: In no apparent distress. Alert and oriented 3. Nondiaphoretic. Head: Atraumatic and normocephalic. Respiratory: No use of accessory muscles. Lungs are clear throughout. Normal airflow. Cardiovascular: Regular rate and rhythm without murmur appreciated. Abdomen: Bowel sounds are normal. No hepatosplenomegaly mass or tenderness appreciated. Obese and therefore difficult to palpate deeply. Extremities: No cyanosis clubbing or edema. Skin: Warm and non-diaphoretic with no new lesions noted. Original Note: Date of Encounter: 04/19/18 Time of Encounter: 14:28 - Assessment and plan (1) CVA (cerebral vascular accident) Current Visit: Yes Status: Acute Assessment and plan: Improving. Right upper extremity strength 5\5, right lower extremity strength 4\5. no new neurological deficits. Continue PT and OT. Will follow progress. Follow up with neurology as scheduled. Qualifiers: CVA mechanism: unspecified Qualified Code(s): I63.9 - Cerebral infarction, unspecified (2) CAD (coronary artery disease) Current Visit: Yes Status: Chronic Assessment and plan: Stable. Denies chest pain. Continue current medication. Qualifiers: Coronary Disease-Associated Artery/Lesion type: [place] artery [place] vs. transplanted heart: [place] heart Associated angina: without angina Qualified Code(s): I25.10 - Atherosclerotic heart disease of [place] coronary artery without angina pectoris (3) Diabetes mellitus, type II Current Visit: Yes Status: Chronic Assessment and plan: Controlled with sliding scale insulin. Monitor fingerstick blood sugar. Will adjust medicines as necessary. Qualifiers: Diabetes mellitus intermediate card tender insulin use: without residential use Diabetes mellitus complication status: with other specified complication Qualified Code(s): E11.69 - Type 2 diabetes mellitus with other specified complication - Time Spent With Patient less than 15 minutes - Subjective Interval history: Participating well with therapy. Ambulating with Walker. Feels like right upper extremity strength is almost normal. Continues to have slight weakness in right lower extremity. No new neurological deficits . Denies any other further complaints at this time. - Constitutional Vitals: Temp Pulse Resp BP Pulse Ox 97.3 F L 82 16 118/70 98 04/19/18 07:00 04/19/18 07:00 04/19/18 07:00 04/19/18 07:00 04/19/18 07:00 General appearance: Present: cooperative, A&O X 3, pleasant, no acute distress, obese, answers questions appropriately - Head Head exam: Present: atraumatic, normocephalic - Eye Eye exam: Present: PERRL, conjuntiva pink, sclera anicteric Pupils: Present: PERRL - Neck Neck exam general surgery: Present: supple, trachea midline. Absent: lymphadenopathy - Respiratory Respiratory exam: Present: CTAB. Absent: accessory muscle use, rales, rhonchi, wheezes - Cardiovascular Cardiovascular exam: Present: RRR, +S1, +S2. Absent: diastolic murmur, gallop, rubs, systolic murmur - GI/Abdominal GI/Abdominal exam: Present: normal bowel sounds, soft, no peritoneal signs. Absent: distended, tenderness - Extremities Exam Extremities exam: Present: warm, radial pulses palpable and symmetrical. Absent: calf tenderness, cyanotic, pedal edema Additional comments: RLE 4/5 RUE 5/5 - Neurological Exam Neurological exam: Present: CN II-XII intact, oriented X3, no focal deficits. Absent: pronater drift, facial droop, speech deficit - Skin Skin exam: Present: dry, intact Internal Medicine: Result - Labs CBC & Chem 7: 04/17/18 05:55 04/17/18 05:55 Consult Discharge Plan - Plan Referrals: Teresa Marie CNP [Primary Care Provider] -
--- NOTE | 2018-04-19 15:19 | Psychological Evaluation ---
Date of Encounter: 04/19/18 Time of Encounter: 09:30 History of Present Illness History of present illness: Ms. Fenton is a 62 year old female admitted for rehabilitation due to deconditioning, secondary to a possible CVA. Patient was evaluated for right hemiparesis at [place] by neurology. After serial imaging , no definite diagnosis of CVA was obtained. Patient continues with right hemiparesis with muscle strength focal deficits noted on exam. 06/30. Patient with complaints of decreased sensation to her right leg, but otherwise no other focal neurological deficits noted on exam. Past Medical History Medical history: Stated seizure history since 1991. Seizure free and no meds >1 year. - Psychiatric History Psychiatric history: Reports: anxiety, depression Additional Psychiatric History: Brief counsleing years ago regarding seizures and grief counseling after 's (20+ years ago) Home Medications and Allergies Aspirin [Lo-Dose Aspirin EC] 81 mg PO DAILY 04/25/16 [History] Atorvastatin Calcium 10 mg PO DAILY 04/25/16 [History] Clopidogrel [Plavix] 75 mg PO DAILY 04/25/16 [History] Duloxetine HCl [Cymbalta] 60 mg PO DAILY 10/06/16 [History] Ergocalciferol (VITAMIN D2) [Vitamin D2] 2,000 unit PO DAILY 10/06/16 [History] Gabapentin [Neurontin] 200 mg PO HS 10/06/16 [History] Metformin HCl [Metformin ER Gastric] 1,000 mg PO BID 10/06/16 [History] Oxybutynin [Ditropan] 5 mg PO BID 10/06/16 [History] Latanoprost [Xalatan] 1 drop BOTH EYES QPM 04/10/18 [History] Levothyroxine Sodium 112 mcg PO DAILY 04/10/18 [History] Gabapentin [Neurontin] 200 mg PO QAM #0 04/12/18 [Rx] Metoprolol XL (24 HR) Succ [Toprol Xl] 25 mg PO DAILY #30 tab.er.24h 04/12/18 [Rx] Nitroglycerin 0.4 mg SL Q5MIN PRN #30 tab.subl 04/12/18 [Rx] Allergy/AdvReac Type Severity Reaction Status Date / Time oxycodone [From Percocet] AdvReac Rash Verified 10/06/16 09:43 Social History - Social History Social History: since age 41 and lives wit daughter and her and grandkids. 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 Currently cares for sister's fianances and this is stressor. - Tobacco Use Smoking Status: Never smoker - Alcohol Use Alcohol Use: none - Drug Use Drug Use: none Cognitive/Emotional Assessment - Cognitive Ability Level of Alertness: Alert Orientation: Person, Place, Time, Day of Week, Month, Year Ability to Follow Directions: Good Speech Pattern: Normal rate Thought Process: Logical Calculations: Able to spell WORLD backw (Digits forward 6; digits backward 3; unable to perfrom mental calculations; unable to perfrom serial 7's but couls perfrom 3's; knew pres, previous pres and govenrnor, Difficulty processsing visual reproduction due to processing. 1/3 words after 5 min; Note poor divided attention; processing speed.) - Emotional Status Mood Description: Anxious Affect Description: Euthymic/stable Coping Ability: Verbalizes positive coping skills Assessment & Plan - Diagnosis (1) Adjustment disorder with depressed mood Diagnosis: R/o cognitive disorder - Prognosis Prognosis: Excellent - Treatment Plan Treatment Plan/Recommendations: Discussed tasks to work on for processing speed, divided attention and rec Speech therapy. Will follow while inpt to assist with development and training in coping strategies. Work on increasing insight and awareness into changes in cognition. Next Session Date: 04/26/18 Procedures - Intervention Interventions: Cognitive/Behavioral Therapy - Participants Therapy Participant: Patient - Session Time Session Start Time: 09:30 Session Stop Time: 10:00
[2018-04-19] MEDS: Latanoprost 2.5 ML BOTTLE BOTH EYES SCH (17:26)
[2018-04-20] MEDS: *HR* Heparin 5,000 UNIT/ML VIAL SQ SCH ×2 (06:24→17:58)
[2018-04-20] MEDS: Metoprolol XL (24 HR) Succ 25 MG TAB.ER.24H PO SCH (08:08)
[2018-04-20] MEDS: Gabapentin 100 MG CAPSULE PO SCH ×2 (08:08→20:48)
[2018-04-20] MEDS: Cholecalciferol (D-3) 1,000 UNIT TABLET PO SCH (08:09)
[2018-04-20] MEDS: Aspirin Enteric Coated 81 MG Tablet PO SCH (08:09)
[2018-04-20] MEDS: Insulin LISPRO 300 UNITS/3 ML VIAL SQ SCH ×4 (09:52→20:47)
--- NOTE | 2018-04-20 12:09 | Internal Med Progress Note ---
Addendum entered and electronically signed by Reilly Booker MD 04/20/18 13:34: I have personally performed a face to face evaluation on this patient. I have r eviewed and agree with the care plan. History and Exam by me shows: Patient still wants to go home. She is concerned because her bowels have not moved for 3 days. I told her we would look at laxatives and try to find something will work for her. She denies other problems. Discussed care with other providers and/or nursing. Patient has no complaint of chest discomfort, dyspnea, orthopnea, palpitations, nausea or vomiting, constipation or diarrhea, other changes in bowel habits, difficulty with urination, rash or itching, or other new complaints, except as mentioned above. Review of systems is otherwise negative. Examination: (Except as mentioned above): General: In no apparent distress. Alert and oriented 3. Nondiaphoretic. Head: Atraumatic and normocephalic. Respiratory: No use of accessory muscles. Lungs are clear throughout. Normal airflow. Cardiovascular: Regular rate and rhythm without murmur appreciated. Abdomen: Bowel sounds are normal. No hepatosplenomegaly mass or tenderness appreciated. Obese and therefore difficult to palpate deeply. Extremities: No cyanosis clubbing or edema. Skin: Warm and non-diaphoretic with no new lesions noted. Neurologic: She still has right lower extremity 4+ over 5 weakness and 4+ over 5 right upper extremity weakness at the lateral grasp but index finger and thumb feel normal. She still has rapid rhythmic alternating motion deficit. This is probably apraxiatype weakness. Original Note: Date of Encounter: 04/20/18 Time of Encounter: 12:06 - Assessment and plan (1) CVA (cerebral vascular accident) Current Visit: Yes Status: Acute Assessment and plan: No acute issues. Patient shows no neurological changes this last exam. Patient continues with right hemiparesis with right extremity muscle strength 4/5. Patients coordination and MS to the RE appears to have increased since my last exam. Participating in physical therapy and progressing well. We will continue with current plan of care. Patient is to continue with follow-up with neurology as ordered Qualifiers: CVA mechanism: unspecified Qualified Code(s): I63.9 - Cerebral infarction, unspecified (2) Diabetes Current Visit: Yes Status: Chronic Assessment and plan: Patient's diabetes is been fairly well controlled. We will continue with fingersticks and sliding scale coverage. We will review patient's medication regimen. Qualifiers: Diabetes mellitus type: type 2 Diabetes mellitus skilled nursing insulin use: without skilled nursing use Diabetes mellitus complication status: without complication Qualified Code(s): E11.9 - Type 2 diabetes mellitus without complications (3) CAD (coronary artery disease) Current Visit: Yes Status: Chronic Assessment and plan: No acute issues. Patient denies any chest discomforts or palpitations. Vital signs stable. We will continue with current medications and plan a care. Qualifiers: Coronary Disease-Associated Artery/Lesion type: [place] artery [place] vs. transplanted heart: [place] heart Associated angina: without angina Qualified Code(s): I25.10 - Atherosclerotic heart disease of [place] coronary artery without angina pectoris (4) Constipation Current Visit: Yes Status: Acute Assessment and plan: Patient continues with complaints of constipation. Patient states that she had a BM a few days ago, but now has not had a BM in over 2 days. Abdomen appears nonacute on exam. Patient denies any nausea or abdominal cramping. Will review patient's current scheduled laxatives and treat with when necessary. Qualifiers: Constipation type: unspecified constipation type Qualified Code(s): K59.00 - Constipation, unspecified - Time Spent With Patient less than 15 minutes - Subjective Interval history: Patient appears relaxed currently denies any discomforts or shortness of breath. Patient does have complaints of constipation stating that she continues to have difficulty having a BM. Patient denies any acute neurological changes and states that she feels that her strength to her the LE has been improving. States that she has been participating in physical therapy and progressing well. - Constitutional Vitals: Temp Pulse Resp BP Pulse Ox 97.9 F 73 18 128/76 96 04/20/18 07:36 04/20/18 07:36 04/20/18 07:36 04/20/18 07:36 04/20/18 07:36 General appearance: Present: cooperative, A&O X 3, pleasant, no acute distress, obese, answers questions appropriately - Head Head exam: Present: atraumatic, normocephalic - Eye Eye exam: Present: PERRL, conjuntiva pink, sclera anicteric Pupils: Present: PERRL - Neck Neck exam general surgery: Present: supple, trachea midline. Absent: lymphadenopathy - Respiratory Respiratory exam: Present: CTAB. Absent: accessory muscle use, rales, rhonchi, wheezes - Cardiovascular Cardiovascular exam: Present: RRR, +S1, +S2. Absent: diastolic murmur, gallop, rubs, systolic murmur - GI/Abdominal GI/Abdominal exam: Present: normal bowel sounds, soft, no peritoneal signs. Absent: distended, tenderness - Extremities Exam Extremities exam: Present: warm, radial pulses palpable and symmetrical. Absent: calf tenderness, cyanotic, pedal edema - Neurological Exam Neurological exam: Present: CN II-XII intact, oriented X3. Absent: pronater drift, facial droop, speech deficit Additional comments: Patient continues to have slight right hemiparesis with muscle strength 4/5 for both flex/ext at prox/distal. RE with 5/5 MS - Skin Skin exam: Present: dry, intact Internal Medicine: Result - Labs CBC & Chem 7: 04/17/18 05:55 04/17/18 05:55 Consult Discharge Plan - Plan Referrals: Teresa Marie DAM ATTENDANT [Primary Care Provider] -
[2018-04-20] MEDS: Latanoprost 2.5 ML BOTTLE BOTH EYES SCH (17:59)
[2018-04-21 06:41] LABS: Hematocrit 38.3 % (35.3-44.9); Hemoglobin 12.8 g/dL (11.5-15.4); Mean Corpuscular HGB Conc 33.4 g/dL (31.6-35.5); Mean Corpuscular Hemoglobin 29.2 pg (28.0-33.3); Mean Corpuscular Volume 87.4 fL (83.0-100.0); Mean Platelet Volume 10.3 fL (9.4-12.4); Platelet Count 289 K/mcL (140-400); Red Blood Count 4.38 M/mcL (3.82-4.97); Red Cell Distribution Width 12.1 % (11.5-14.5)
[2018-04-21 06:52] LABS: Alanine Aminotransferase 23 Units/L (7-52); Albumin 4.1 g/dL (3.5-5.7); Alkaline Phosphatase 55 Units/L (34-104); Aspartate Amino Transferase 16 Units/L (13-39); BUN/Creatinine Ratio 18 (6-26); Bilirubin,Total 0.4 mg/dL (0.3-1.0); Blood Urea Nitrogen 13 mg/dL (8-23); Calcium 9.4 mg/dL (8.6-10.3); Carbon Dioxide 31 mEq/L (23-29); Chloride 105 mEq/L (98-107); Globulin 2.1 g/dL (2.4-3.5); Glucose 114 mg/dL (70-105); Magnesium 1.8 mg/dL (1.6-2.6); Osmolality,Calculated 295 (280-300); Potassium 4.7 mEq/L (3.5-5.1); Sodium 142 mEq/L (136-145); Total Protein 6.2 g/dL (6.4-8.9); eGFR For Non-African Americans > 60 (> 60)
[2018-04-21] MEDS: *HR* Heparin 5,000 UNIT/ML VIAL SQ SCH ×2 (07:05→17:00)
[2018-04-21] MEDS: Insulin LISPRO 300 UNITS/3 ML VIAL SQ SCH ×4 (08:55→21:19)
[2018-04-21] MEDS: Aspirin Enteric Coated 81 MG Tablet PO SCH (09:14)
[2018-04-21] MEDS: Gabapentin 100 MG CAPSULE PO SCH ×2 (09:14→20:26)
[2018-04-21] MEDS: Metoprolol XL (24 HR) Succ 25 MG TAB.ER.24H PO SCH (09:14)
[2018-04-21] MEDS: Cholecalciferol (D-3) 1,000 UNIT TABLET PO SCH (09:14)
--- NOTE | 2018-04-21 14:37 | Internal Med Progress Note ---
Date of Encounter: 04/21/18 Time of Encounter: 13:05 - Assessment and plan (1) CVA (cerebral vascular accident) Current Visit: Yes Status: Acute Assessment and plan: While this diagnosis is still somewhat up in a year, we have treated her for same. She continues with therapy and her strength is improving. She is still somewhat unstable and needs to walk with assistance with a walker. Plan is to reassess her next week to see about discharge, later in the week or beyond. Qualifiers: CVA mechanism: unspecified Qualified Code(s): I63.9 - Cerebral infarction, unspecified (2) Constipation Current Visit: Yes Status: Acute Assessment and plan: This is still a problem and will continue to use MiraLAX or may need magnesium citrate if no quick response. Qualifiers: Constipation type: unspecified constipation type Qualified Code(s): K59.00 - Constipation, unspecified (3) Adjustment disorder with depressed mood Current Visit: Yes Status: Acute Assessment and plan: Appreciate Dr. Deutsch's involvement. (4) Diabetes mellitus, type II Current Visit: Yes Status: Chronic Assessment and plan: Her sugars have been fine so we will discontinue daily Accu-Cheks. Will follow with weekly lab, or more if needed. Qualifiers: Diabetes mellitus chcf insulin use: without termite exterminator use Diabetes mellitus complication status: with other specified complication Qualified Code(s): E11.69 - Type 2 diabetes mellitus with other specified complication (5) Hypertension Current Visit: No Status: Chronic Assessment and plan: Clinically stable. Qualifiers: Hypertension type: unspecified secondary hypertension Qualified Code(s): I15.9 - Secondary hypertension, unspecified; I15 - Secondary hypertension (6) Chest pain Current Visit: No Status: Acute Assessment and plan: In discussing this in patient's history, she feels this was only related to fibromyalgia. Qualifiers: Chest pain type: unspecified Qualified Code(s): R07.9 - Chest pain, un specified - Subjective Interval history: Patient is doing well. She feels like she is regaining her ability to walk, for the first time today she could feel her right foot. She feels that her bowels are not moving well. We discussed the use of MiraLAX and she will do so. She has no other complaints. Patient has no complaint of chest discomfort, dyspnea, orthopnea, palpitations, nausea or vomiting, constipation or diarrhea, other changes in bowel habits, difficulty with urination, rash or itching, or other new complaints, except as mentioned above. Review of systems is otherwise negative. I discussed management of her care with nursing staff. - Constitutional Vitals: Temp Pulse Resp BP Pulse Ox 97.6 F 63 16 115/69 98 04/21/18 07:07 04/21/18 07:07 04/21/18 07:07 04/21/18 07:07 04/21/18 07:07 Exam: Examination: (Except as mentioned above): General: In no apparent distress. Alert and oriented 3. Nondiaphoretic. Head: Atraumatic and normocephalic. Respiratory: No use of accessory muscles. Lungs are clear throughout. Normal airflow. Cardiovascular: Regular rate and rhythm without murmur appreciated. Abdomen: Bowel sounds are normal. No hepatosplenomegaly mass or tenderness appreciated. Obese and therefore difficult to palpate deeply.Patient is examined upright in chair and this also limits exam. Extremities: No cyanosis clubbing or edema. Skin: Warm and non-diaphoretic with no new lesions noted. Neurologic: She has minimal right upper and right lower extremity weakness. Her dorsiflexion is nearly normal, which is a marked improvement from a few days ago. Internal Medicine: Result - Labs CBC & Chem 7: 04/21/18 06:10 04/21/18 06:10 Labs: Short CBC 04/21/18 Range/Units 06:10 WBC 7.4 (4.3-11.1) K/mcL Hgb 12.8 (11.5-15.4) g/dL Hct 38.3 (35.3-44.9) % Plt Count 289 (140-400) K/mcL [facility] 04/21/18 06:10 Sodium 142 Potassium 4.7 Chloride 105 Carbon Dioxide 31 H BUN 13 Creatinine 0.74 Glucose 114 H Calcium 9.4 Liver Function 04/21/18 Range/Units 06:10 Total Bilirubin 0.4 (0.3-1.0) mg/dL AST 16 (13-39) Units/L ALT 23 (7-52) Units/L Alkaline Phosphatase 55 (34-104) Units/L Albumin 4.1 (3.5-5.7) g/dL Consult Discharge Plan - Plan Referrals: Teresa Marie CNP [Primary Care Provider] -
[2018-04-21] MEDS: Latanoprost 2.5 ML BOTTLE BOTH EYES SCH (17:05)
[2018-04-22] MEDS: *HR* Heparin 5,000 UNIT/ML VIAL SQ SCH ×2 (04:15→18:08)
[2018-04-22] MEDS: Aspirin Enteric Coated 81 MG Tablet PO SCH (08:44)
[2018-04-22] MEDS: Metoprolol XL (24 HR) Succ 25 MG TAB.ER.24H PO SCH (08:44)
[2018-04-22] MEDS: Gabapentin 100 MG CAPSULE PO SCH ×2 (08:44→21:05)
[2018-04-22] MEDS: Cholecalciferol (D-3) 1,000 UNIT TABLET PO SCH (08:44)
--- NOTE | 2018-04-22 09:39 | Internal Med Progress Note ---
Date of Encounter: 04/22/18 Time of Encounter: 09:37 - Assessment and plan (1) Diabetes Current Visit: Yes Status: Chronic Assessment and plan: On insulin Blood sugars seems to be well control no acute changes continue to monitor. HBA1C ordered Qualifiers: Diabetes mellitus type: type 2 Diabetes mellitus joint terminal attack controller insulin use: without fpc use Diabetes mellitus complication status: without complication Qualified Code(s): E11.9 - Type 2 diabetes mellitus without complications (2) Hypertension Current Visit: No Status: Chronic Assessment and plan: Stable on meds continue to monitor no new change no side effects Qualifiers: Hypertension type: unspecified secondary hypertension Qualified Code(s): I15.9 - Secondary hypertension, unspecified; I15 - Secondary hypertension (3) LUE weakness Current Visit: No Status: Acute Assessment and plan: She has weakness in her lower and upper Arm right side , although MRI and CT has been negative but I believe that these studies might have been done earlier , for diagnostic purpsoe a repat MRI head can be done however this would not change her treatment protocol. She continues to improve continue supportive car e, control lipids, Plavix etc - Subjective Interval history: No new issues at the present time she is getting rehab / Complains of constipation . - Constitutional Vitals: Temp Pulse Resp BP Pulse Ox 98.3 F 66 14 136/70 94 04/22/18 07:32 04/22/18 07:32 04/22/18 07:32 04/22/18 07:32 04/22/18 07:32 General appearance: Present: cooperative, A&O X 3, pleasant, no acute distress, obese, answers questions appropriately - Head Head exam: Present: atraumatic - Eye Eye exam: Present: conjunctival injection, EOMI, PERRL - Neck Neck exam general surgery: Present: supple. Absent: tenderness, nuchal rigidity - Respiratory Respiratory exam: Present: CTAB. Absent: chest wall tenderness, prolonged expiratory phase, rales, respiratory distress, rhonchi, stridor, wheezes, tachypnea - Cardiovascular Cardiovascular exam: Present: RRR, +S1, +S2. Absent: diastolic murmur, gallop, irregular rhythm, JVD, rubs, systolic murmur - GI/Abdominal GI/Abdominal exam: Present: normal bowel sounds, soft. Absent: distended, mass, rigid, tenderness - Extremities Exam Extremities exam: Absent: pedal edema, tenderness, warm - Neurological Exam Neurological exam: Present: CN II-XII intact, oriented X3 Additional comments: some what decreased strength on the right side lower leg more then her right arm. NO facial deviation or any other defect noted Internal Medicine: Result - Labs CBC & Chem 7: 04/21/18 06:10 04/21/18 06:10 Consult Discharge Plan - Plan Referrals: Teresa Marie CNP [Primary Care Provider] -
[2018-04-22] MEDS: Insulin LISPRO 300 UNITS/3 ML VIAL SQ SCH ×3 (12:41→21:05)
[2018-04-22] MEDS: Latanoprost 2.5 ML BOTTLE BOTH EYES SCH (18:09)
[2018-04-22 19:29] LABS: Estimated Average Glucose 146 mg/dl; Hemoglobin A1C 6.7 %
[2018-04-23] MEDS: *HR* Heparin 5,000 UNIT/ML VIAL SQ SCH ×2 (06:19→18:19)
[2018-04-23] MEDS: Cholecalciferol (D-3) 1,000 UNIT TABLET PO SCH (08:20)
[2018-04-23] MEDS: Gabapentin 100 MG CAPSULE PO SCH ×2 (08:20→20:20)
[2018-04-23] MEDS: Aspirin Enteric Coated 81 MG Tablet PO SCH (08:21)
[2018-04-23] MEDS: Metoprolol XL (24 HR) Succ 25 MG TAB.ER.24H PO SCH (08:21)
[2018-04-23] MEDS: traMADol 50 MG TABLET PO PRN (08:21)
[2018-04-23] MEDS: Insulin LISPRO 300 UNITS/3 ML VIAL SQ SCH ×4 (08:37→20:20)
--- NOTE | 2018-04-23 09:15 | Internal Med Progress Note ---
Date of Encounter: 04/23/18 Time of Encounter: 09:13 - Assessment and plan (1) Diabetes Current Visit: Yes Status: Chronic Assessment and plan: Add metformin blood sugars seems to be some what high on Insulin has not been on oral . Qualifiers: Diabetes mellitus type: type 2 Diabetes mellitus intermediate insulin use: without intermediate use Diabetes mellitus complication status: without complication Qualified Code(s): E11.9 - Type 2 diabetes mellitus without complications (2) Hypertension Current Visit: No Status: Chronic Assessment and plan: stable continue to monitor Qualifiers: Hypertension type: unspecified secondary hypertension Qualified Code(s): I15.9 - Secondary hypertension, unspecified; I15 - Secondary hypertension (3) LUE weakness Current Visit: No Status: Acute Assessment and plan: s/p CVA left Hemisphere , Weakness on both sides getting PT stable and improving - Subjective Interval history: No new issues seems to be getting better and getting her strength improved Upper right side more then leg no other issues - Constitutional Vitals: Temp Pulse Resp BP Pulse Ox 97.9 F 64 18 129/56 96 04/23/18 07:25 04/23/18 07:25 04/23/18 07:25 04/23/18 07:25 04/23/18 07:25 General appearance: Present: cooperative, A&O X 3, pleasant, no acute distress, obese, answers questions appropriately - Head Head exam: Present: atraumatic - Eye Eye exam: Present: EOMI, PERRL. Absent: scleral icterus, conjuntiva pink - Neck Neck exam general surgery: Present: full ROM, supple. Absent: nuchal rigidity, thyromegaly - Respiratory Respiratory exam: Present: CTAB. Absent: chest wall tenderness, decreased breath sounds, rales, respiratory distress, stridor, wheezes, tachypnea - Cardiovascular Cardiovascular exam: Present: RRR, +S1, +S2. Absent: JVD, systolic murmur, tachycardia - GI/Abdominal GI/Abdominal exam: Present: mass, normal bowel sounds, soft. Absent: distended, firm, guarding, rebound, rigid, tenderness, no peritoneal signs - Extremities Exam Extremities exam: Absent: pedal edema, tenderness - Neurological Exam Neurological exam: Present: CN II-XII intact, oriented X3. Absent: facial droop, speech deficit Additional comments: right side upper and lower arm 4/5 when compared to left side which is 5/5 Internal Medicine: Result - Labs CBC & Chem 7: 04/21/18 06:10 04/21/18 06:10 Consult Discharge Plan - Plan Referrals: Teresa Marie CNP [Primary Care Provider] -
[2018-04-23] MEDS ORDERED: *HR* Metformin 500 MG TABLET PO SCH (17:00)
[2018-04-23] MEDS: Latanoprost 2.5 ML BOTTLE BOTH EYES SCH (18:20)
[2018-04-24] MEDS: *HR* Heparin 5,000 UNIT/ML VIAL SQ SCH ×2 (05:46→17:31)
[2018-04-24] MEDS: Aspirin Enteric Coated 81 MG Tablet PO SCH (08:55)
[2018-04-24] MEDS: Metoprolol XL (24 HR) Succ 25 MG TAB.ER.24H PO SCH (08:55)
[2018-04-24] MEDS: Gabapentin 100 MG CAPSULE PO SCH ×2 (08:56→20:45)
[2018-04-24] MEDS: Cholecalciferol (D-3) 1,000 UNIT TABLET PO SCH (08:56)
[2018-04-24] MEDS: traMADol 50 MG TABLET PO PRN ×2 (08:56→17:35)
[2018-04-24] MEDS: Insulin LISPRO 300 UNITS/3 ML VIAL SQ SCH ×4 (09:00→20:15)
[2018-04-24] MEDS: Acetaminophen 325 MG TABLET PO PRN ×2 (11:01→20:47)
--- NOTE | 2018-04-24 13:34 | Internal Med Progress Note ---
Addendum entered and electronically signed by Reilly Booker MD 04/25/18 12:57: I have personally performed a face to face evaluation on this patient. I have r eviewed and agree with the care plan. History and Exam by me shows: The patient was evaluated by me yesterday but the note was not complete. This documentation is being completed today for that reason. Patient is concerned about her bowels being slow but they are moving. She asks if she can have more Colace. I assured her we could make sure she had it twice a day. She wants to go home and I told her that the team meeting said she would probably be going this week. She was pleased by that. Discussed care with other providers and/or nursing. Patient has no complaint of chest discomfort, dyspnea, orthopnea, palpitations, nausea or vomiting, constipation or diarrhea, other changes in bowel habits, difficulty with urination, rash or itching, or other new complaints, except as m entioned above. Review of systems is otherwise negative. Examination: (Except as mentioned above): General: In no apparent distress. Alert and oriented 3. Nondiaphoretic. Head: Atraumatic and normocephalic. Respiratory: No use of accessory muscles. Lungs are clear throughout. Normal airflow. Cardiovascular: Regular rate and rhythm without murmur appreciated. Abdomen: Bowel sounds are normal. No hepatosplenomegaly mass or tenderness appreciated. Obese and therefore difficult to palpate deeply. Patient is examined upright in chair and this also limits exam. Extremities: No cyanosis clubbing or edema. Skin: Warm and non-diaphoretic with no new lesions noted. Original Note: Date of Encounter: 04/24/18 Time of Encounter: 13:32 - Assessment and plan (1) CVA (cerebral vascular accident) Current Visit: Yes Status: Acute Assessment and plan: Improving. Right upper extremity strength 5\5, right lower extremity strength 4\5. no new neurological deficits. Continue PT and OT. Will follow progress. Follow up with neurology as scheduled. Qualifiers: CVA mechanism: unspecified Qualified Code(s): I63.9 - Cerebral infarction, unspecified (2) CAD (coronary artery disease) Current Visit: Yes Status: Chronic Assessment and plan: Stable. Denies chest pain. Continue current medication. Qualifiers: Coronary Disease-Associated Artery/Lesion type: [place] artery [place] vs. transplanted heart: [place] heart Associated angina: without angina Qualified Code(s): I25.10 - Atherosclerotic heart disease of [place] coronary artery wi thout angina pectoris (3) Diabetes mellitus, type II Current Visit: Yes Status: Chronic Assessment and plan: Controlled with sliding scale insulin. Monitor fingerstick blood sugar. Will adjust medicines as necessary. Qualifiers: Diabetes mellitus long term care pharmacist insulin use: without longterm use Diabetes mellitus complication status: with other specified complication Qualified Code(s): E11.69 - Type 2 diabetes mellitus with other specified complication (4) Right hip pain Current Visit: Yes Status: Acute Assessment and plan: xray ordered. will follow for result. - Time Spent With Patient less than 15 minutes - Subjective Interval history: Participating well with therapy. Ambulating with Walker with SBA. c/o 2 day hx of right hip pain. unaware of injury. hurts to bear weight. No new neurological deficits . Denies any other further complaints at this time. - Constitutional Vitals: Temp Pulse Resp BP Pulse Ox 97.3 F L 68 15 129/92 98 04/24/18 08:12 04/24/18 08:12 04/24/18 08:12 04/24/18 08:12 04/24/18 08:12 General appearance: Present: cooperative, A&O X 3, pleasant, no acute distress, obese, answers questions appropriately - Head Head exam: Present: atraumatic, normocephalic - Eye Eye exam: Present: PERRL, conjuntiva pink, sclera anicteric Pupils: Present: PERRL - Neck Neck exam general surgery: Present: supple, trachea midline. Absent: lymphadenopathy - Respiratory Respiratory exam: Present: CTAB. Absent: accessory muscle use, rales, rhonchi, wheezes - Cardiovascular Cardiovascular exam: Present: RRR, +S1, +S2. Absent: diastolic murmur, gallop, rubs, systolic murmur - GI/Abdominal GI/Abdominal exam: Present: normal bowel sounds, soft, no peritoneal signs. Absent: distended, tenderness - Extremities Exam Extremities exam: Present: warm, radial pulses palpable and symmetrical. Absent: calf tenderness, cyanotic, pedal edema - Neurological Exam Neurological exam: Present: CN II-XII intact, oriented X3, no focal deficits. Absent: pronater drift, facial droop, speech deficit - Skin Skin exam: Present: dry, intact Internal Medicine: Result - Labs CBC & Chem 7: 04/21/18 06:10 04/21/18 06:10 Consult Discharge Plan - Plan Referrals: Teresa Marie INSULATION INSPECTOR [Primary Care Provider] -
[2018-04-24] MEDS: Latanoprost 2.5 ML BOTTLE BOTH EYES SCH (17:36)
[2018-04-25] MEDS: *HR* Heparin 5,000 UNIT/ML VIAL SQ SCH ×2 (05:43→17:22)
[2018-04-25] MEDS: traMADol 50 MG TABLET PO PRN (08:34)
[2018-04-25] MEDS: Gabapentin 100 MG CAPSULE PO SCH ×2 (08:34→21:05)
[2018-04-25] MEDS: Aspirin Enteric Coated 81 MG Tablet PO SCH (08:34)
[2018-04-25] MEDS: Metoprolol XL (24 HR) Succ 25 MG TAB.ER.24H PO SCH (08:34)
[2018-04-25] MEDS: Cholecalciferol (D-3) 1,000 UNIT TABLET PO SCH (08:34)
[2018-04-25] MEDS: Insulin LISPRO 300 UNITS/3 ML VIAL SQ SCH ×4 (08:35→21:03)
--- NOTE | 2018-04-25 10:19 | Internal Med Progress Note ---
Addendum entered and electronically signed by Reilly Booker MD 04/25/18 12:59: I have personally performed a face to face evaluation on this patient. I have r eviewed and agree with the care plan. History and Exam by me shows: Current discharge plan he is to go home in 2 days. She is progressing well with therapy. She is pleased with her bowel movements. She has no other complaints. Discussed care with other providers and/or nursing. Patient has no complaint of chest discomfort, dyspnea, orthopnea, palpitations, nausea or vomiting, constipation or diarrhea, other changes in bowel habits, difficulty with urination, rash or itching, or other new complaints, except as mentioned above. Review of systems is otherwise negative. Examination: (Except as mentioned above): General: In no apparent distress. Alert and oriented 3. Nondiaphoretic. Head: Atraumatic and normocephalic. Respiratory: No use of accessory muscles. Lungs are clear throughout. Normal airflow. Cardiovascular: Regular rate and rhythm without murmur appreciated. Abdomen: Bowel sounds are normal. No hepatosplenomegaly mass or tenderness appreciated. Obese and therefore difficult to palpate deeply. Extremities: No cyanosis clubbing or edema. Skin: Warm and non-diaphoretic with no new lesions noted. I told patient that I wanted to make sure she got an outpatient MRI, as this clinically seems very much like a stroke and she should have evaluation of same. I have reiterated that I feel she needs a cardiac embolic survey Original Note: Date of Encounter: 04/25/18 Time of Encounter: 10:11 - Assessment and plan (1) CVA (cerebral vascular accident) Current Visit: Yes Status: Acute Assessment and plan: Improving. ambulating with walker. Right upper extremity strength 5\5, right lower extremity slight weakness. no new neurological deficits. Continue PT and OT. Will follow progress. Follow up with neurology as scheduled. Qualifiers: CVA mechanism: unspecified Qualified Code(s): I63.9 - Cerebral infarction, unspecified (2) CAD (coronary artery disease) Current Visit: Yes Status: Chronic Assessment and plan: Stable. Denies chest pain. Continue current medication. Qualifiers: Coronary Disease-Associated Artery/Lesion type: [place] artery [place] vs. transplanted heart: [place] heart Associated angina: without angina Qualified Code(s): I25.10 - Atherosclerotic heart disease of [place] coronary artery without angina pectoris (3) Diabetes mellitus, type II Current Visit: Yes Status: Chronic Assessment and plan: Controlled with sliding scale insulin. Monitor fingerstick blood sugar. Will adjust medicines as necessary. Qualifiers: Diabetes mellitus fci insulin use: without bed bug exterminator use Diabetes mellitus complication status: with other specified complication Qualified Code(s): E11.69 - Type 2 diabetes mellitus with other specified complication (4) Right hip pain Current Visit: Yes Status: Acute Assessment and plan: improving. xray negative. - Time Spent With Patient less than 15 minutes - Subjective Interval history: Participating well with therapy. Ambulating with Walker with SBA. states right hip pain improved. right hip xray negative. No new neurological deficits . Denies any other further complaints at this time. - Constitutional Vitals: Temp Pulse Resp BP Pulse Ox 97.9 F 59 18 118/60 96 04/25/18 08:00 04/25/18 08:00 04/25/18 08:00 04/25/18 08:00 04/25/18 08:00 General appearance: Present: cooperative, A&O X 3, pleasant, no acute distress, obese, answers questions appropriately - Head Head exam: Present: atraumatic, normocephalic - Eye Eye exam: Present: PERRL, conjuntiva pink, sclera anicteric Pupils: Present: PERRL - Neck Neck exam general surgery: Present: supple, trachea midline. Absent: lymphadenopathy - Respiratory Respiratory exam: Present: CTAB. Absent: accessory muscle use, rales, rhonchi, wheezes - Cardiovascular Cardiovascular exam: Present: RRR, +S1, +S2. Absent: diastolic murmur, gallop, rubs, systolic murmur - GI/Abdominal GI/Abdominal exam: Present: normal bowel sounds, soft, no peritoneal signs. Absent: distended, tenderness - Extremities Exam Extremities exam: Present: warm, radial pulses palpable and symmetrical. Absent: calf tenderness, cyanotic, pedal edema Additional comments: right hip, no pain with palpation. ROM and strength normal. - Neurological Exam Neurological exam: Present: CN II-XII intact, oriented X3, no focal deficits. Absent: pronater drift, facial droop, speech deficit - Skin Skin exam: Present: dry, intact Internal Medicine: Result - Labs CBC & Chem 7: 04/21/18 06:10 04/21/18 06:10 - Impressions Impressions Hip X-Ray 04/24/18 13:30 IMPRESSION: No acute osseous abnormality. Minimal early osteoarthritic changes about the hips. D/ / Satish Truong / Satish Truong Interpreting Provider: Satish Truong Consult Discharge Plan - Plan Referrals: Teresa Marie, MAINTENANCE MECHANIC [Primary Care Provider] -
[2018-04-25] MEDS: Latanoprost 2.5 ML BOTTLE BOTH EYES SCH (17:22)
[2018-04-26] MEDS: *HR* Heparin 5,000 UNIT/ML VIAL SQ SCH ×2 (05:54→17:40)
[2018-04-26] MEDS: traMADol 50 MG TABLET PO PRN (08:16)
[2018-04-26] MEDS: Gabapentin 100 MG CAPSULE PO SCH ×2 (08:16→21:23)
[2018-04-26] MEDS: Insulin LISPRO 300 UNITS/3 ML VIAL SQ SCH ×4 (08:17→21:19)
[2018-04-26] MEDS: Cholecalciferol (D-3) 1,000 UNIT TABLET PO SCH (08:17)
[2018-04-26] MEDS: Metoprolol XL (24 HR) Succ 25 MG TAB.ER.24H PO SCH (08:17)
[2018-04-26] MEDS: Aspirin Enteric Coated 81 MG Tablet PO SCH (08:17)
--- NOTE | 2018-04-26 10:54 | Internal Med Progress Note ---
Addendum entered and electronically signed by Reilly Booker MD 04/26/18 13:30: I have personally performed a face to face evaluation on this patient. I have r eviewed and agree with the care plan. History and Exam by me shows: Patient is without complaint. She is pleased to be going home tomorrow. She has no concerns or questions. I did review with her and need for new medication such as her antihypertensive and antihyperlipidemic. She is also noted to be on an antidepressant which will need to continue. I expressed to her again the importance of follow-up for embolic source evaluation as well as a follow-up MRI to document that this is a stroke as it certainly has behaved like one. Her hip pain is continuing to improve without any specific treatment. Discussed care with other providers and/or nursing. Patient has no complaint of chest discomfort, dyspnea, orthopnea, palpitations, nausea or vomiting, constipation or diarrhea, other changes in bowel habits, difficulty with urination, rash or itching, or other new complaints, except as mentioned above. Review of systems is otherwise negative. Examination: (Except as mentioned above): General: In no apparent distress. Alert and oriented 3. Nondiaphoretic. Head: Atraumatic and normocephalic. Respiratory: No use of accessory muscles. Lungs are clear throughout. Normal airflow. Cardiovascular: Regular rate and rhythm without murmur appreciated. Abdomen: Bowel sounds are normal. No hepatosplenomegaly mass or tenderness appreciated. Obese and therefore difficult to palpate deeply.Patient is examined upright in chair and this also limits exam. Extremities: No cyanosis clubbing or edema. Skin: Warm and non-diaphoretic with no new lesions noted. Original Note: Date of Encounter: 04/26/18 Time of Encounter: 10:52 - Assessment and plan (1) CVA (cerebral vascular accident) Current Visit: Yes Status: Acute Assessment and plan: Improving. ambulating with walker. Right upper extremity strength 5\5, right lower extremity slight weakness. no new neurological deficits. Continue PT and OT. Will follow progress. Follow up with neurology as scheduled. Qualifiers: CVA mechanism: unspecified Qualified Code(s): I63.9 - Cerebral infarction, unspecified (2) CAD (coronary artery disease) Current Visit: Yes Status: Chronic Assessment and plan: Stable. Denies chest pain. Continue current medication. Qualifiers: Coronary Disease-Associated Artery/Lesion type: [place] artery [place] vs. transplanted heart: [place] heart Associated angina: without angina Qualified Code(s): I25.10 - Atherosclerotic heart disease of [place] coronary artery without angina pectoris (3) Diabetes mellitus, type II Current Visit: Yes Status: Chronic Assessment and plan: Controlled with sliding scale insulin. Monitor fingerstick blood sugar. Will adjust medicines as necessary. Qualifiers: Diabetes mellitus detention insulin use: without detention use Diabetes mellitus complication status: with other specified complication Qualified Code(s): E11.69 - Type 2 diabetes mellitus with other specified complication (4) Right hip pain Current Visit: Yes Status: Acute Assessment and plan: improving. xray negative. - Time Spent With Patient less than 15 minutes - Subjective Interval history: Participating well with therapy. Ambulating with Walker.. No new neurological deficits . Denies any other further complaints at this time. bowels moved this am. - Constitutional Vitals: Temp Pulse Resp BP Pulse Ox 97.8 F 75 18 106/65 96 04/26/18 07:04 04/26/18 07:04 04/26/18 07:04 04/26/18 07:04 04/26/18 07:04 General appearance: Present: cooperative, A&O X 3, pleasant, no acute distress, obese, answers questions appropriately - Head Head exam: Present: atraumatic, normocephalic - Eye Eye exam: Present: PERRL, conjuntiva pink, sclera anicteric Pupils: Present: PERRL - Neck Neck exam general surgery: Present: supple, trachea midline. Absent: lymphadenopathy - Respiratory Respiratory exam: Present: CTAB. Absent: accessory muscle use, rales, rhonchi, wheezes - Cardiovascular Cardiovascular exam: Present: RRR, +S1, +S2. Absent: diastolic murmur, gallop, rubs, systolic murmur - GI/Abdominal GI/Abdominal exam: Present: normal bowel sounds, soft, no peritoneal signs. Absent: distended, tenderness - Extremities Exam Extremities exam: Present: warm, radial pulses palpable and symmetrical. Absent: calf tenderness, cyanotic, pedal edema - Neurological Exam Neurological exam: Present: CN II-XII intact, oriented X3, no focal deficits. Absent: pronater drift, facial droop, speech deficit - Skin Skin exam: Present: dry, intact Internal Medicine: Result - Labs CBC & Chem 7: 04/21/18 06:10 04/21/18 06:10 Consult Discharge Plan - Plan Referrals: Teresa Marie CNP [Primary Care Provider] -
--- NOTE | 2018-04-26 13:30 | Rehab Psychology Progress Note ---
Date of Encounter: 04/26/18 Time of Encounter: 10:00 Subjective - Patient Report Patient Report: Pt looks more relaxed and alert than last week. She expressed awareness and insight into cognitive changes stating "I didn't realize how bad they are". She noted difficulty with memory; sequencing; names. She was tearful discussing the changes - Symptoms Symptoms: Difficulty giving steps to overlearned task to coworker when they called last week. Objective - WHODAS Functional Impairment Concentration, Problem-solving, Communication: Mild Social Functioning: Mild - Comments Functional Status Comments: Better with numbers vs verbal info. - Mental Status Mental Status Changes: Stated mood has improved. Assessment and Plan - Diagnosis (1) Adjustment disorder with depressed mood Diagnosis: R/o cognitive disorder - Response to Treatment Response to Treatment: Improved - Prognosis Prognosis: Good - Treatment Plan Changes in Treatment Plan Goals: Made the following list for her to complete after discharge: 1) contact [employer] to research benefits to include short- term disability; 2) have others communicate in writing for to do lists and tasks with steps; 3) Continue with cognitive remediation; 4) If not better cognition in 3 months contact me re: N europsychological evaluation; 5) encourage others to discuss any changes/concerns they have with her performance; 6) initiate a journal to document progress and problems; 7) google [employer] for computerized cognitive tasks. Procedures - Intervention Interventions: Cognitive/Behavioral Therapy - Modality Modality: Psychotherapy 30 minutes - Participants Therapy Participant: Patient - Session Time Session Start Time: 10:00 Session Stop Time: 10:30
[2018-04-26] MEDS: Latanoprost 2.5 ML BOTTLE BOTH EYES SCH (21:23)
[2018-04-27] MEDS: *HR* Heparin 5,000 UNIT/ML VIAL SQ SCH (05:53)
[2018-04-27] MEDS: Insulin LISPRO 300 UNITS/3 ML VIAL SQ SCH ×2 (07:25→11:34)
[2018-04-27] MEDS: Aspirin Enteric Coated 81 MG Tablet PO SCH (07:26)
[2018-04-27] MEDS: Cholecalciferol (D-3) 1,000 UNIT TABLET PO SCH (07:26)
[2018-04-27] MEDS: Gabapentin 100 MG CAPSULE PO SCH (07:27)
[2018-04-27] MEDS: Metoprolol XL (24 HR) Succ 25 MG TAB.ER.24H PO SCH (07:27)
[2018-04-27 07:29] VITALS: BP 127/74
--- NOTE | 2018-04-27 10:42 | Discharge Summary ---
Addendum entered and electronically signed by Ofelia Lyn 04/27/18 12:17: I have personally performed a face to face evaluation on this patient. I have reviewed and agree with the care plan. Original Note: Date of Encounter: 04/27/18 Time of Encounter: 10:38 - Discharge Diagnosis (1) CVA (cerebral vascular accident) Priority: Primary Status: Acute Comments: Patient was admitted for CVA with mild right hemiparesis. Patient progressed well with therapy during her stay at this facility. Patient slowly regained strength to her right extremities. No further acute neurological deficits were noted on exam. No further complaints of chest pain. Patient is continue her physical therapy through outpatient therapy here at [facility]. Patient is to continue with current home medications. Patient is continue follow-up with neurology as scheduled. Patient is recommended to follow-up with PCP in one week. Qualifiers: CVA mechanism: unspecified Qualified Code(s): I63.9 - Cerebral infarction, unspecified (2) Diabetes Priority: Secondary Status: Chronic Comments: No acute issues during her stay at this facility. Patient's glucose was monitored and covered with sliding scale. Patient is continue with home medications after discharge and follow-up with PCP. Qualifiers: Diabetes mellitus type: type 2 Diabetes mellitus watcher [employer] insulin use: without usp use Diabetes mellitus complication status: without complication Qualified Code(s): E11.9 - Type 2 diabetes mellitus without complications (3) CAD (coronary artery disease) Priority: Secondary Status: Chronic Comments: No acute issues during her stay at this facility. Patient no longer had any complaints of chest discomforts or palpitations. Patient is continue with her home medications and follow-up with PCP. Qualifiers: Coronary Disease-Associated Artery/Lesion type: [place] artery [place] vs. transplanted heart: [place] heart Associated angina: without angina Qualified Code(s): I25.10 - Atherosclerotic heart disease of [place] coronary artery without angina pectoris (4) Constipation Priority: Secondary Status: Acute Comments: Problem has resolved. Patient currently denies any difficulty with constipation . Abdomen appears nonacute. Qualifiers: Constipation type: unspecified constipation type Qualified Code(s): K59.00 - Constipation, unspecified Hospital course: Ms. Fenton is a 62 year old female, who was admitted to this facility as a transfer from [facility]. Patient presented to [facility] with complaints of chest pain and right hemiparesis. Patient's chest pain had soon resolved after presentation to the emergency department and cardiology evaluation showed no OH per enzymes. Patient did have a stress test performed which did show slight ischemia. Per medical records treatment plan decision was for medical management. Patient was evaluated by neurology and had serial emergency which did not show any acute infarction. Patient continues with right hemiparesis, which has improved greatly during her stay at this facility. Patient's right extremities show very minimal weakness and currently at 4+/5 muscle strength. Patient is to continue follow-up with neurology as scheduled. Patient does have a history of previous CVA, but states that she has no residual from that event. Patient denies paresthesias symptoms. Patient denies any further chest discomforts or palpitations. Patient denies any dyspnea or productive cough. Afebrile. Patient is continue follow-up with PCP N1 week as recommended. Continue with scheduled follow-up in neurology. Patient will continue with physical therapy as an outpatient here at this facility. Discharge discussed with: patient Time spent discussing smoking cessation with patient: 3 to 10 minutes - Time Spent with Patient Total time spent providing and/or coordinating discharge services: Less than 30 minutes - Discharge Medications Home Medications: Aspirin [Lo-Dose Aspirin EC] 81 mg PO DAILY 04/25/16 [History] Atorvastatin Calcium 10 mg PO DAILY 04/25/16 [History] Clopidogrel [Plavix] 75 mg PO DAILY 04/25/16 [History] Duloxetine HCl [Cymbalta] 60 mg PO DAILY 10/06/16 [History] Ergocalciferol (VITAMIN D2) [Vitamin D2] 2,000 unit PO DAILY 10/06/16 [History] Gabapentin [Neurontin] 200 mg PO HS 10/06/16 [History] Metformin HCl [Metformin ER Gastric] 1,000 mg PO BID 10/06/16 [History] Oxybutynin [Ditropan] 5 mg PO BID 10/06/16 [History] Latanoprost [Xalatan] 1 drop BOTH EYES QPM 04/10/18 [History] Levothyroxine Sodium 112 mcg PO DAILY 04/10/18 [History] Gabapentin [Neurontin] 200 mg PO QAM #0 04/12/18 [Rx] Metoprolol XL (24 HR) Succ [Toprol Xl] 25 mg PO DAILY #30 tab.er.24h 04/12/18 [Rx] Nitroglycerin 0.4 mg SL Q5MIN PRN #30 tab.subl 04/12/18 [Rx] Allergies/Adverse Reactions: Allergy/AdvReac Type Severity Reaction Status Date / Time oxycodone [From Percocet] AdvReac Rash Verified 10/06/16 09:43 Date of admission: 04/12/18 17:57 Primary care physician: Teresa Marie CNP Consults: 04/12/18 19:01 Consult to Occupational Therapy [CONS] Routine Comment: Evaluate, develop and implement POC Reason for Consult: weakness r/t weakness Does patient have active BEDREST order?: No Is patient medically & hemodynamically stable?: Yes Patient assessed for mobility or mobilized this visit?: No Consult to Physical Therapy [CONS] Routine Comment: Evaluate, develop and implement POC Reason for Consult: weakness r/t weakness Does patient have active BEDREST order?: No Is patient medically & hemodynamically stable?: Yes Patient assessed for mobility or mobilized this visit?: No Consult to Recreational Therapy [CONS] Routine Comment: Evaluate, develop and implement POC Consult to Party Plan Sales Unit Advisor [CONS] Routine Reason for SW Consult: weakness r/t weakness 04/17/18 16:03 Consult to Psychology [CONS] Routine Consulting Provider: Kacie Deutsch Reason for Consult: Possible depression; adjustment disorder Call Completed: No 04/19/18 19:08 Consult to Speech Therapy [CONS] Routine Comment: Evaluate, develop and implement POC Reason for Consult: therapy request Call Completed: Yes Discharging clinician: Ofelia Lyn - Constitutional Vitals: Temp Pulse Resp BP Pulse Ox 97.4 F L 64 18 127/74 98 04/27/18 07:00 04/27/18 07:00 04/27/18 07:00 04/27/18 07:00 04/27/18 07:00 General appearance: Present: cooperative, A&O X 3, pleasant, no acute distress, obese, answers questions appropriately - Head Head exam: Present: atraumatic, normocephalic - Eye Eye exam: Present: PERRL, conjuntiva pink, sclera anicteric Pupils: Present: PERRL - Neck Neck exam general surgery: Present: supple, trachea midline. Absent: ly mphadenopathy - Respiratory Respiratory exam: Present: CTAB. Absent: accessory muscle use, rales, rhonchi, wheezes - Cardiovascular Cardiovascular exam: Present: RRR, +S1, +S2. Absent: diastolic murmur, gallop, rubs, systolic murmur - GI/Abdominal GI/Abdominal exam: Present: normal bowel sounds, soft, no peritoneal signs. Absent: distended, tenderness - Extremities Exam Extremities exam: Present: warm, radial pulses palpable and symmetrical. Absent: calf tenderness, cyanotic, pedal edema - Neurological Exam Neurological exam: Present: CN II-XII intact, oriented X3. Absent: pronater drift, facial droop, speech deficit Additional comments: Patient continues to have slight right hemiparesis with muscle strength at 4+/5 to both extremities. Left extremities show muscle strength 5/5. - Skin Skin exam: Present: dry, intact - Patient Status Disposition: Home, Self-Care Condition: Good Functional capacity at discharge: uses cane/walker Overall status at discharge: patient is progressing back to baseline - Discharge Instructions Follow Up With: Jorge Fish Jr, MD [Partnered Physician] - 05/04/18 3:15 pm Marie,Teresa Lozano CNP [Primary Care Provider] - 05/02/18 7:45 am - Diet and Activity Activity: ambulate only with your walker, as per physical therapy Diet: diabetic diet
== END 2018-04-27 17:24 | disposition home or self-care (01) | DRG 57 ==
LOC: INPGRE 17:57